=== PATIENT | female | born 1975 | race Hispanic/Latino ===

== ENCOUNTER → 2019-01-10 | Day surgery (SDC) | payer OTHER ==
[2019-01-09 10:37] LABS: BASOPHILS % 0.4 % (0.0-1.0); EOSINOPHILS # (AUTO) 0.2 (0.0-0.4); EOSINOPHILS % 2.9 % (0.0-6.0); HEMOGLOBIN 12.4 g/dL (12.0-16.0); LYMPHOCYTES # (AUTO) 1.7 (1.0-3.2); MEAN CORPUSCULAR HEMOGLOBIN 32.2 pg (28-32); MEAN CORPUSCULAR HGB CONC 33.5 g/dL (31-35); MEAN CORPUSCULAR VOLUME 96.1 fL (81-99); MONOCYTES # (AUTO) 0.2 (0.2-0.8); MONOCYTES % 4.4 % (4.4-11.3); NEUTROPHILS # (AUTO) 3.3 (2.1-6.9); NEUTROPHILS % 59.9 % (38.7-80.0); PLATELET COUNT 245 x10e3/uL (140-360); RED BLOOD COUNT 3.85 x10e6/uL (3.6-5.1); RED CELL DISTRIBUTION WIDTH 12.1 % (11.7-14.4)
[~2019-01-10] MED LIST: ACETAMINOPHEN 1000 MG/100 ML IV ONE; BUPIVACAINE 0.25%/EPI 30ML SDV INJ ONE; DEXAMETHASONE SOD PHOS INJ 4 MG/ML VIAL ONE; FENTANYL CITRATE/PF 100MCG/2 ML INJ ONE; GLYCOPYRROLATE INJ 1MG/ 5 ML SYR ONE; HYDROMORPHONE 1MG/1ML INJ ONE; KETOROLAC TROMETHAMINE 30 MG/ML VIAL ONE; LIDOCAINE HCL 2% LOCAL INJ 5 ML SDV VIAL INJ ONE; MIDAZOLAM HCL 2 MG/2 ML VIAL ONE; NEOSTIGMINE 5 MG/5ML SYR ONE; ONDANSETRON HCL INJ 2MG/ML 2ML 2 MG/ML VIAL ONE; PROPOFOL IV EMULSION 10 MG/ML 20 ML VIAL ONE; ROCURONIUM BROMIDE 10 MG/ML 5ML VIAL ONE; SEVOFLURANE INHAL SOLN 250 ML PEN BTL ONE
[2019-01-10 16:15] VITALS: BP 111/59
--- NOTE | 2019-01-10 22:56 | Operative Report ---
DATE OF PROCEDURE: SURGEON: Em Salter MD PREOPERATIVE DIAGNOSES: Left ovarian cyst, abnormal uterine bleeding. POSTOPERATIVE DIAGNOSES: Left ovarian cyst, abnormal uterine bleeding. PROCEDURES: 1. Laparoscopy, single port; excision of left ovarian cyst. 2. Hysteroscopy, D and C. COMPLICATIONS: None. BLOOD LOSS: Minimal. DESCRIPTION OF PROCEDURE: The patient was taken to the OR. General anesthesia was induced. She was prepped and draped in a sterile fashion and placed in dorsal lithotomy position. Bladder was emptied with a rubber catheter. Weighted speculum was placed inside the vagina and cannula was placed, applied to the cervix to remove the uterus. Gloves were changed and Allis clamps were applied at the umbilicus and infraumbilical skin incision was made with a scalpel, taken down to the fascia and subcutaneous tissue dissected with a hemostat and using S-shaped retractor the fascia was held with two Thang clamps and the fascia was opened with this #11 blade scalpel. The incision was extended vertically and using scissors the gel point was placed after putting three ports into the checkpoints dome and abdomen was inflated with carbon dioxide gas. The patient was placed in Trendelenburg position. A 5 mm scope was passed into the abdomen and showed the left ovarian cyst of about 3 cm, this was excised using LigaSure. Suction and irrigation of peritoneal cavity with warm saline. Mild oozing from the ovarian cyst, that was noted on the left ovary and was cauterized using the bipolar [place]. Hemostasis was found to be adequate. The right ovary and tubes were normal. Uterus was normal. Upper abdomen was grossly normal. Instruments were removed from the abdomen. Abdomen was deflated. Rectus fascia of the umbilicus was approximated using Vicryl 0 sutures and skin was closed with subcu Vicryl 4-0. Following this, hysteroscopy D and C was performed. Weighted speculum was placed inside the vagina. Cervix was grasped with single-tooth tenaculum. Cervix was dilated to Hegar' 8 and a TruClear hysteroscope was introduced showed normal cavity with thickened endometrium. Hysteroscope was removed. Sharp curettings were obtained and sent to pathology. The patient tolerated the procedure well. Lap, sponge, and needle counts were correct x2 at the end of procedure. Em Salter MD DD/KIERAN /[id number]
== END | disposition home or self-care (01) ==
LOC: OR 10:45
PROVIDERS: ATTEND Obstetrics & Gynecology
DX: N83.12 Corpus luteum cyst of left ovary (principal); N83.292 Other ovarian cyst, left side; R10.2 Pelvic and perineal pain; N84.0 Polyp of corpus uteri; Z01.812 Encounter for preprocedural laboratory examination; Z83.3 Family history of diabetes mellitus; Z82.49 Family history of ischemic heart disease and other diseases of the circulatory system; Z80.9 Family history of malignant neoplasm, unspecified; R10.32 Left lower quadrant pain; R32 Unspecified urinary incontinence; N93.9 Abnormal uterine and vaginal bleeding, unspecified
CPT/HCPCS: 36415; 58558; 58662; 84702; 85025; 88305; J0131; J1100; J1170; J1885; J2001; J2250; J2405; J2704; J3010; J3490; 88304